=== PATIENT | male | born 1995 | race Native Hawaiian/Other Pacific Islander ===

== ENCOUNTER → 2017-10-09 07:34 | Outpatient (CLI) | payer OTHER | END | disposition home or self-care (01) | LOC: AMB 07:34 | DX: S30.0XXA Contusion of lower back and pelvis, initial encounter (principal); V49.88XA Car occupant (driver) (passenger) injured in other specified transport accidents, initial encounter; Y93.89 Activity, other specified; Y92.89 Other specified places as the place of occurrence of the external cause; Y99.8 Other external cause status ==